=== PATIENT | male | born 1945 | race Two or more races ===

== ENCOUNTER 2021-08-08 06:36 | Day surgery (SDC) | payer OTHER | END 2021-08-08 18:30 | disposition home or self-care (01) | LOC: CIR.AMB 06:36 | PROVIDERS: ATTEND Orthopaedic Surgery Hand Surgery | DX: S52.532P Colles' fracture of left radius, subsequent encounter for closed fracture with malunion (principal); Z20.822 Contact with and (suspected) exposure to COVID-19 ==